=== PATIENT | female | born 1990 | race Caucasian/White ===

== ENCOUNTER 2017-02-23 12:15 | Emergency (ER) | payer MEDICAID ==
[~2017-02-23] VITALS: Ht 160 cm; Wt 52.0 kg
[~2017-02-23 12:15] MED LIST: CARI350T PO; DIAZ2TAB PO
[2017-02-23 12:26] VITALS: BP 133/79
[2017-02-23] MEDS ORDERED: DIPH25CA83 PO (13:03)
[2017-02-23] MEDS ORDERED: PRED20TA PO (13:03)
[2017-02-23] MEDS ORDERED: diphenhydrAMINE 25mg capsule PO ONE (13:05)
[2017-02-23] MEDS ORDERED: predniSONE 20 mg tablet PO ONE (13:05)
== END 2017-02-23 13:33 | disposition home or self-care (01) ==
LOC: ER 12:16
DX: L25.9 Unspecified contact dermatitis, unspecified cause (principal); Z88.5 Allergy status to narcotic agent; Z91.040 Latex allergy status
CPT/HCPCS: 99283; J7512; Q0163

== ENCOUNTER 2017-06-27 13:05 | Emergency (ER) | payer MEDICAID ==
[~2017-06-27] VITALS: Ht 162.6 cm; Wt 50.5 kg
[~2017-06-27 13:05] MED LIST changes: +DIPH25CA83 PO
[2017-06-27 13:49] VITALS: BP 111/62
[2017-06-27] MEDS ORDERED: ibuprofen tablet 400 MG TABLET PO ONE (15:05)
== END 2017-06-27 15:25 | disposition home or self-care (01) ==
LOC: ER 13:05
DX: M25.532 Pain in left wrist (principal); Z88.5 Allergy status to narcotic agent; Z88.8 Allergy status to other drugs, medicaments and biological substances; Z91.040 Latex allergy status; W22.8XXA Striking against or struck by other objects, initial encounter; Y93.89 Activity, other specified; Y92.89 Other specified places as the place of occurrence of the external cause; Y99.8 Other external cause status
CPT/HCPCS: 29125; 73110; 99284

== ENCOUNTER 2018-05-10 21:29 | Emergency (ER) | payer MEDICAID ==
[~2018-05-10] VITALS: Ht 162.6 cm; Wt 53.2 kg
[2018-05-10 21:38] VITALS: BP 122/80
== END 2018-05-10 22:38 | disposition home or self-care (01) ==
LOC: ER 21:30
DX: S01.112A Laceration without foreign body of left eyelid and periocular area, initial encounter (principal); Z91.040 Latex allergy status; Z88.5 Allergy status to narcotic agent; Z88.8 Allergy status to other drugs, medicaments and biological substances; Z79.899 Other long term (current) drug therapy; W22.8XXA Striking against or struck by other objects, initial encounter; Y93.89 Activity, other specified; Y92.89 Other specified places as the place of occurrence of the external cause; Y99.8 Other external cause status
CPT/HCPCS: 12011; 99283